=== PATIENT | male | born 1985 | race Caucasian/White ===

== ENCOUNTER 2017-08-25 09:21 | Inpatient (IN) | payer MEDICAID ==
[~2017-08-25] VITALS: Ht 188 cm; Wt 122.5 kg
[~2017-08-25 09:21] MED LIST: CYCL10TA13 PO; LORA-476 PO; SERT50TA PO
[2017-08-25 09:42] VITALS: BP 153/107
[2017-08-25] MEDS ORDERED: DICYCLOMINE HCL LIQUID 10 MG/5 ML UDC PO ONE (09:55)
[2017-08-25] MEDS ORDERED: ALUMINUM HYD/MAG/SIMETHICONE 30 ML UDC PO ONE (09:55)
[2017-08-25] MEDS ORDERED: ONDANSETRON 4 MG/2 ML VIAL IVP ONE (10:00)
[2017-08-25] MEDS ORDERED: NACL 0.9% 1,000 ML IV ONE (10:00)
[2017-08-25] MEDS ORDERED: MORPHINE SULFATE 4 MG/ML SYR IVP ONE (10:30)
[2017-08-25 10:31] LABS: WHITE BLOOD COUNT (AUTO) 18.6 K/uL (4.8-10.8)
[2017-08-25 10:35] LABS: HEMOGLOBIN 14.8 g/dL (12.0-18.0); MEAN CORPUSCULAR HEMOGLOBIN 28 pg (27-31); MEAN CORPUSCULAR HGB CONC 33 g/dL (33-37); MEAN CORPUSCULAR VOLUME 84 fL (80-94); PLATELET COUNT (AUTO) 379 K/uL (140-450); RED BLOOD CELL COUNT(AUTO) 5.39 MIL/uL (4.20-6.10); RED CELL DISTRIBUTION WIDTH 19.2 % (11.6-13.7)
[2017-08-25] MEDS: KETOROLAC 30 MG/ML VIAL IVP ONE ×2 (10:41→10:47)
[2017-08-25 10:42] LABS: ALBUMIN 4.4 g/dL (3.4-5.0); ANION GAP 19.6 (8-16); CARBON DIOXIDE 22.5 mmol/L (21-32); CREATININE 0.9 mg/dL (0.7-1.3); POTASSIUM 3.1 mmol/L (3.5-5.1); TOTAL BILIRUBIN 0.8 mg/dL (0.0-1.0)
[2017-08-25 10:48] LABS: PROTHROMBIN TIME 11.3 secs (10.8-13.4)
[2017-08-25 10:55] LABS: LYMPHOCYTES % (MANUAL) 5 % (20-46); MONOCYTES % (MANUAL) 1 % (5-12)
[2017-08-25 11:10] LABS: APPEARANCE,URINE CLEAR (CLEAR); BILIRUBIN,URINE NEGATIVE (NEGATIVE); BLOOD, URINE NEGATIVE (NEGATIVE); COLOR,URINE YELLOW (YELLOW); LEUKOCYTE ESTERASE ,URINE NEGATIVE (NEGATIVE); NITRITE, URINE NEGATIVE (NEGATIVE); UGLUCOSE NEGATIVE (NEGATIVE)
[2017-08-25 11:16] LABS: RBC,URINE 0-5 (RARE) /HPF (0-5); WBC,URINE 0-5 (RARE) /HPF (0-5)
[2017-08-25] MEDS: NACL 0.9% 1,000 ML IV SCH ×3 (11:40→21:00)
[2017-08-25] MEDS ORDERED: ONDANSETRON 4 MG/2 ML VIAL IVP PRN (11:40)
[2017-08-25] MEDS ORDERED: HYDROcodone/APAP 7.5/325 MG 1 TAB PO PRN (11:40)
[2017-08-25] MEDS ORDERED: hydrALAZINE 20 MG/ML VIAL ONE (11:53)
[2017-08-25] MEDS ORDERED: hydrALAZINE 20 MG/ML VIAL IVP ONE (11:55)
[2017-08-25] MEDS ORDERED: oxyCODONE/APAP 5/325 MG 1 TAB TAB PO PRN (12:10)
[2017-08-25 12:15] LABS: MAGNESIUM 1.7 mg/dL (1.8-2.4)
[2017-08-25 12:15] LABS: BARBITURATE, URINE NEG. ng/ml (NEG <=200); BENZODIAZEPINE, URINE NEG. ng/mL (NEG <=200); CANNABINOID, URINE POS. ng/mL (NEG <=50); COCAINE, URINE NEG. ng/mL (NEG <=300); OPIATE, URINE NEG. ng/mL (NEG <=2000); PHENCYCLIDINE SCREEN,URINE NEG. ng/mL (NEG <=25)
[2017-08-25] MEDS ORDERED: HYDROmorphone 1 MG/ML AMP ONE (12:24)
[2017-08-25 12:25] LABS: CHOL/HDL RATIO 5.6 (1-4.5); FREE T4 (FREE THYROXINE) 0.77 ng/dL (0.76-1.46); PHOSPHORUS 3.5 mg/dL (2.5-4.9); THYROID STIMULATING HORMONE 2.83 uIU/mL (0.34-3.74)
[2017-08-25] MEDS: HYDROmorphone PFS 2 MG/ML SYR IVP PRN ×3 (12:27→21:04)
[2017-08-25 13:00] VITALS: BP 160/97
[2017-08-25] MEDS ORDERED: POTASSIUM CHLORIDE 10 MEQ TABER PO SCH (13:00)
[2017-08-25] MEDS ORDERED: SCOPOLAMINE 1.5 MG/72 HR PATCH TD SCH (14:00)
[2017-08-25] MEDS: chlordiazePOXIDE 25 MG CAP PO SCH ×2 (14:21→17:06)
[2017-08-25 16:00] VITALS: BP 166/109
[2017-08-25 20:00] VITALS: BP 158/119
[2017-08-25] MEDS: DOCUSATE SODIUM 100 MG GELCAP PO SCH (21:03)
[2017-08-25] MEDS: LORazepam 2 MG/ML VIAL IVP PRN (23:49)
[2017-08-26] VITALS: BP 164/112
[2017-08-26] MEDS: NACL 0.9% 1,000 ML IV SCH ×5 (01:00→21:00)
[2017-08-26] MEDS: HYDROmorphone PFS 2 MG/ML SYR IVP PRN ×6 (01:21→21:46)
[2017-08-26 04:00] VITALS: BP 153/112
[2017-08-26 06:03] LABS: HEMATOCRIT 45.3 % (36-52); HEMOGLOBIN 14.5 g/dL (12.0-18.0); MEAN CORPUSCULAR HEMOGLOBIN 27 pg (27-31); MEAN CORPUSCULAR HGB CONC 32 g/dL (33-37); MEAN CORPUSCULAR VOLUME 85 fL (80-94); PLATELET COUNT (AUTO) 276 K/uL (140-450); RED BLOOD CELL COUNT(AUTO) 5.31 MIL/uL (4.20-6.10); RED CELL DISTRIBUTION WIDTH 20.1 % (11.6-13.7)
[2017-08-26 06:22] LABS: ANION GAP 17.2 (8-16); CARBON DIOXIDE 24.2 mmol/L (21-32); CREATININE 0.8 mg/dL (0.7-1.3); POTASSIUM 4.4 mmol/L (3.5-5.1)
[2017-08-26 06:24] LABS: MAGNESIUM 1.3 mg/dL (1.8-2.4); PHOSPHORUS 2.8 mg/dL (2.5-4.9)
[2017-08-26 07:05] LABS: LYMPHOCYTES % (MANUAL) 3 % (20-46); MONOCYTES % (MANUAL) 3 % (5-12)
[2017-08-26 08:00] VITALS: BP 161/110
[2017-08-26] MEDS: FOLIC ACID 1 MG TAB PO SCH (09:13)
[2017-08-26] MEDS: MULTIVITAMIN 1 TAB PO SCH (09:13)
[2017-08-26] MEDS: THIAMINE 100 MG TAB PO SCH (09:13)
[2017-08-26] MEDS: DOCUSATE SODIUM 100 MG GELCAP PO SCH ×2 (09:14→21:45)
[2017-08-26] MEDS: MAGNESIUM OXIDE 400 MG TAB PO SCH (09:14)
[2017-08-26] MEDS: chlordiazePOXIDE 25 MG CAP PO SCH ×3 (09:14→17:28)
[2017-08-26] MEDS: LORazepam 2 MG/ML VIAL IVP PRN (10:39)
[2017-08-26] MEDS ORDERED: METOPROLOL SUCCINATE 50 MG TABER PO SCH (11:35)
[2017-08-26] MEDS: ACETAMINOPHEN 325 MG TAB PO PRN (11:46)
[2017-08-26 12:00] VITALS: BP_SYST 137; BP_SYST 162; BP_DIAS 105; BP_DIAS 98
[2017-08-26 16:00] VITALS: BP 162/105
[2017-08-26 20:00] VITALS: BP 146/80
[2017-08-27] VITALS: BP 135/88
[2017-08-27] MEDS: HYDROmorphone PFS 2 MG/ML SYR IVP PRN (01:46)
[2017-08-27] MEDS: NACL 0.9% 1,000 ML IV SCH ×4 (03:40→23:40)
[2017-08-27 04:00] VITALS: BP 145/92
[2017-08-27] MEDS ORDERED: METOPROLOL SUCCINATE 50 MG TABER PO SCH ×2 (05:00→09:00)
[2017-08-27] MEDS: ACETAMINOPHEN 325 MG TAB PO PRN (05:15)
[2017-08-27 05:55] LABS: HEMATOCRIT 35.4 % (36-52); HEMOGLOBIN 11.8 g/dL (12.0-18.0); MEAN CORPUSCULAR HEMOGLOBIN 28 pg (27-31); MEAN CORPUSCULAR HGB CONC 33 g/dL (33-37); MEAN CORPUSCULAR VOLUME 85 fL (80-94); PLATELET COUNT (AUTO) 192 K/uL (140-450); RED BLOOD CELL COUNT(AUTO) 4.17 MIL/uL (4.20-6.10); RED CELL DISTRIBUTION WIDTH 19.7 % (11.6-13.7); WHITE BLOOD COUNT (AUTO) 17.8 K/uL (4.8-10.8)
[2017-08-27 06:16] LABS: ANION GAP 13.4 (8-16); CREATININE 0.7 mg/dL (0.7-1.3); POTASSIUM 3.4 mmol/L (3.5-5.1)
[2017-08-27 06:21] LABS: MAGNESIUM 1.4 mg/dL (1.8-2.4); PHOSPHORUS 1.6 mg/dL (2.5-4.9)
[2017-08-27 07:04] LABS: LYMPHOCYTES % (MANUAL) 7 % (20-46); MONOCYTES % (MANUAL) 5 % (5-12)
[2017-08-27 08:00] VITALS: BP 142/95
[2017-08-27] MEDS ORDERED: METHOCARBAMOL 500 MG TAB PO PRN (08:05)
[2017-08-27] MEDS: THIAMINE 100 MG TAB PO SCH (08:37)
[2017-08-27] MEDS: MAGNESIUM OXIDE 400 MG TAB PO SCH (08:37)
[2017-08-27] MEDS: DOCUSATE SODIUM 100 MG GELCAP PO SCH ×2 (08:37→21:44)
[2017-08-27] MEDS: HYDROcodone/APAP 7.5/325 MG 1 TAB PO PRN ×4 (08:38→21:44)
[2017-08-27] MEDS: FOLIC ACID 1 MG TAB PO SCH (08:38)
[2017-08-27] MEDS: chlordiazePOXIDE 25 MG CAP PO SCH ×3 (08:38→16:41)
[2017-08-27] MEDS: MULTIVITAMIN 1 TAB PO SCH (08:39)
[2017-08-27] MEDS ORDERED: ALUMINUM HYD/MAG/SIMETHICONE 30 ML UDC PO PRN (08:50)
[2017-08-27] MEDS ORDERED: MAG SULF 2000 MG/WATER PREMIX 50 ML IV SCH (09:00)
[2017-08-27] MEDS ORDERED: POTASSIUM CHLORIDE 10 MEQ TABER PO SCH (09:00)
[2017-08-27 12:00] VITALS: BP 128/88
[2017-08-27 16:00] VITALS: BP 139/97
[2017-08-27] MEDS ORDERED: LORazepam 2 MG/ML VIAL IVP SCH (17:30)
[2017-08-27] MEDS: LORazepam 2 MG/ML VIAL IVP PRN (18:09)
[2017-08-27 20:00] VITALS: BP 131/90
[2017-08-27] MEDS ORDERED: SODIUM PHOS / POTASSIUM PHOS 1 PKT PDR PO SCH (21:00)
[2017-08-28] VITALS: BP 136/90
[2017-08-28 04:00] VITALS: BP 135/82
== END 2017-08-28 05:30 | disposition left against medical advice (07) | DRG 282 ==
LOC: MED 09:21 → MTU 11:40
PROVIDERS: ADMIT Family Medicine Sports Medicine; ATTEND Family Medicine Sports Medicine
DX: K85.20 Alcohol induced acute pancreatitis without necrosis or infection (principal); R65.10 Systemic inflammatory response syndrome (SIRS) of non-infectious origin without acute organ dysfunction; K76.0 Fatty (change of) liver, not elsewhere classified; E87.6 Hypokalemia; E83.42 Hypomagnesemia; F10.10 Alcohol abuse, uncomplicated; E66.9 Obesity, unspecified; E78.1 Pure hyperglyceridemia; I10 Essential (primary) hypertension; F17.210 Nicotine dependence, cigarettes, uncomplicated; Z53.21 Procedure and treatment not carried out due to patient leaving prior to being seen by health care provider; E11.9 Type 2 diabetes mellitus without complications; Z68.34 Body mass index [BMI] 34.0-34.9, adult; Z88.8 Allergy status to other drugs, medicaments and biological substances; Z87.442 Personal history of urinary calculi; Z98.84 Bariatric surgery status
CPT/HCPCS: 36415; 71045; 80048; 80053; 80305; 81001; 82140; 82150; 83036; 83615; 83690; 83735; 83880; 84100; 84439; 84443; 84484; 85025; 85610; 85730; 87081; 96361; 96374; 96375; 99285; G0482; J0360; J1170; J1885; J2060; J2270; J2405; J3475; J7030; Q0092

== ENCOUNTER 2017-08-29 22:11 | Inpatient (IN) | payer MEDICAID ==
[~2017-08-29] VITALS: Ht 188 cm; Wt 119.0 kg
[~2017-08-29 22:11] MED LIST changes: -SERT50TA PO
[2017-08-29 22:44] VITALS: BP 128/82
[2017-08-29 23:41] LABS: HEMATOCRIT 34.6 % (36-52); HEMOGLOBIN 11.4 g/dL (12.0-18.0); MEAN CORPUSCULAR HEMOGLOBIN 28 pg (27-31); MEAN CORPUSCULAR HGB CONC 33 g/dL (33-37); MEAN CORPUSCULAR VOLUME 86 fL (80-94); PLATELET COUNT (AUTO) 223 K/uL (140-450); RED BLOOD CELL COUNT(AUTO) 4.03 MIL/uL (4.20-6.10); RED CELL DISTRIBUTION WIDTH 19.6 % (11.6-13.7); WHITE BLOOD COUNT (AUTO) 23.7 K/uL (4.8-10.8)
[2017-08-29 23:51] LABS: ANION GAP 15.7 (8-16); CARBON DIOXIDE 23.3 mmol/L (21-32); CREATININE 0.6 mg/dL (0.7-1.3)
[2017-08-29 23:57] LABS: ALBUMIN 2.7 g/dL (3.4-5.0); TOTAL BILIRUBIN 0.5 mg/dL (0.0-1.0)
[2017-08-30 00:02] LABS: EOSINOPHILS % (MANUAL) 1 % (0-4); LYMPHOCYTES % (MANUAL) 13 % (20-46); MONOCYTES % (MANUAL) 10 % (5-12)
--- NOTE | 2017-08-30 02:00 | NUR ---
PT. AMBULATED TO ER [facility]
[2017-08-30] MEDS ORDERED: ONDANSETRON 4 MG/2 ML VIAL IVP ONE (02:25)
[2017-08-30] MEDS ORDERED: MORPHINE SULFATE 4 MG/ML SYR IVP ONE ×2 (02:25→04:35)
[2017-08-30] MEDS ORDERED: NACL 0.9% 1,000 ML IV ONE ×2 (02:25→04:35)
--- NOTE | 2017-08-30 02:48 | NUR ---
PT MOVED TO BED 3
--- NOTE | 2017-08-30 03:01 | NUR ---
RECEIVED PT FROM DAY NURSE ANGEL RN, PT IN STABLE CONDITION. NO S/S OF DISTRESS NOTED. PT IS AAOX4. PT IS ON RA. SKIN INTACT, WARM AND DRY TO TOUCH, TATTOOS IN MULTIPLE AREAS OF THE BODY. IV TO L AC 20G PATENT AND INTACT. INITIAL ASSESSMENT COMPLETED. PLAN OF CARE DISCUSSED WITH PT, VERBALIZED UNDERSTANDING. ALL SAFETY PRECAUTIONS MET, CALL LIGHT WITHIN REACH, BOARD UPDATED WILL CONTINUE TO MONITOR, Addendum: 08/31/17 at 0305 by Rima Pisano RN INCORRECT TIME, 08/30/171920
[2017-08-30] MEDS ORDERED: ONDANSETRON 4 MG/2 ML VIAL IVP PRN (05:05)
[2017-08-30] MEDS ORDERED: MECL-322 PO (05:55)
--- NOTE | 2017-08-30 05:58 | NUR ---
Pt escorted to floor via [place] by Glenn AWAD and Desean GONZALEZ with VSS
--- NOTE | 2017-08-30 06:07 | NUR ---
Report given and care transfered to Sydney RN
--- NOTE | 2017-08-30 06:09 | NUR ---
RECEIVED PT. FROM ER PER CJ AWAKE AND ALERT. SKIN INTACT. TATTOES IN MULTIPLE PARTS OF BODY. ABLE TO VERBALIZE NEEDS WELL IN URDU. NO SOB. DENIES PAIN AT THIS TIME. PT. DX. PANCREATITIS. ROM X 4. CARE PLANS FOR THE DAY EXPLAINED TO PT. CALL LIGHT USE AND RAPID RESPONSE. AFEBRILE.
[2017-08-30 06:23] VITALS: BP 120/74
[2017-08-30] MEDS ORDERED: MECLIZINE HCL 25 MG PO SCH (07:15)
--- NOTE | 2017-08-30 07:28 | NUR ---
ENDORSED TO THE AM RN FOR CONTINUITY OF CARE. NO RESTLESSNESS. SLEEPING. TELEMETRY MONITORING. NSR.
--- NOTE | 2017-08-30 07:30 | NUR ---
REPORT RECEIVED FROM STRIP FEEDER, PT SLEEPING QUIETLY IN NAD, RESP EVEN UNLABORED ON RA, SKIN WARM DRY COLOR WNL, PT AROUSES EASILY, NO C/O PAIN OR DISCOMFORT AT THIS TIME, PLAN OF CARE REVIEWED, ALL SAFETY MEASURES IN PLACE, WILL CONTINUE TO MONITOR.
[2017-08-30 07:34] LABS: PROTHROMBIN TIME 11.5 secs (10.8-13.4)
[2017-08-30 07:39] LABS: ANION GAP 14.6 (8-16); CARBON DIOXIDE 25.4 mmol/L (21-32); CREATININE 0.6 mg/dL (0.7-1.3)
[2017-08-30 07:43] LABS: CHOL/HDL RATIO 6.7 (1-4.5); FREE T4 (FREE THYROXINE) 1.04 ng/dL (0.76-1.46); PHOSPHORUS 3.1 mg/dL (2.5-4.9); THYROID STIMULATING HORMONE 3.02 uIU/mL (0.34-3.74)
[2017-08-30] MEDS ORDERED: MECLIZINE 25 MG TAB PO PRN (07:45)
[2017-08-30 08:00] VITALS: BP 121/80
[2017-08-30] MEDS: DOCUSATE SODIUM 100 MG GELCAP PO SCH ×2 (08:20→21:01)
[2017-08-30] MEDS: CYCLOBENZAPRINE 10 MG TAB PO SCH ×3 (08:20→16:35)
[2017-08-30] MEDS: LORazepam 1 MG TAB PO SCH ×3 (08:20→16:35)
[2017-08-30] MEDS: NACL 0.9% 1,000 ML IV SCH ×3 (08:21→21:37)
--- NOTE | 2017-08-30 08:30 | NUR ---
DUE MEDS GIVEN, DIMITRY WELL, NS IVF STARTED PER ORDER, OK TO START CLEAR LIQ PER DR ANDREWS, APPLE JUICE GIVEN AT THIS TIME. WILL CONTINUE TO MONITOR.
--- NOTE | 2017-08-30 10:04 | NUR ---
PATIENT HAS BEEN SCREENED AND CATEGORIZED MODERATE NUTRITION RISK. PATIENT WILL BE SEEN WITHIN 3-5 DAYS OF ADMISSION. 09/01/17-09/03/[address]
[2017-08-30] MEDS: LEVOFLOXACIN 750 MG/D5W PREMIX 150 ML IV SCH (11:44)
[2017-08-30] MEDS: HYDROcodone/APAP 7.5/325 MG 1 TAB PO PRN ×2 (11:53→18:06)
[2017-08-30 12:00] VITALS: BP 138/87
[2017-08-30] MEDS ORDERED: POTASSIUM CHLORIDE 40 MEQ, LIDOCAINE 1% 25 MG in NACL 0.9% 250 ML IV SCH (12:30)
--- NOTE | 2017-08-30 14:00 | NUR ---
YOHAN CASANOVA AT BEDSIDE.
[2017-08-30] MEDS: SCOPOLAMINE 1.5 MG/72 HR PATCH TD SCH (14:06)
[2017-08-30 14:58] LABS: APPEARANCE,URINE CLEAR (CLEAR); BILIRUBIN,URINE 1+ (NEGATIVE); BLOOD, URINE NEGATIVE (NEGATIVE); COLOR,URINE YELLOW (YELLOW); LEUKOCYTE ESTERASE ,URINE NEGATIVE (NEGATIVE); NITRITE, URINE NEGATIVE (NEGATIVE); PH,URINE 6.5 (5.0-9.0); UGLUCOSE NEGATIVE (NEGATIVE)
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
[2017-08-30] MEDS: CLINDAMYCIN 600 MG in DEXTROSE 5% 50 ML IV SCH ×2 (15:46→21:17)
[2017-08-30 16:00] VITALS: BP 133/82
[2017-08-30 16:06] LABS: BARBITURATE, URINE NEG. ng/ml (NEG <=200); BENZODIAZEPINE, URINE POS. ng/mL (NEG <=200); CANNABINOID, URINE POS. ng/mL (NEG <=50); COCAINE, URINE NEG. ng/mL (NEG <=300); OPIATE, URINE POS. ng/mL (NEG <=2000); PHENCYCLIDINE SCREEN,URINE NEG. ng/mL (NEG <=25)
--- NOTE | 2017-08-30 18:11 | NUR ---
PT HAS BEEN SLEEPING MOST OF THE DAY, NOW AWAKE ALERT, C/O MID ABD APIN STATES 4-11/11, NORCO GIVEN, PT DIMITRY CLEAR LIQ WELL, WITHOUT VOMITING, IVF CONTINUES, SITE CLEAR, SAFETY MEASURES REMAINS, WILL CONTINUE TO MONITOR
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
--- NOTE | 2017-08-30 19:21 | NUR ---
RECEIVED PT FROM DAY NURSE ANGEL RN, PT IN STABLE CONDITION. NO S/S OF DISTRESS NOTED. PT IS AAOX4. PT IS ON RA. SKIN INTACT, WARM AND DRY TO TOUCH, TATTOOS IN MULTIPLE AREAS OF THE BODY. IV TO L AC 20G PATENT AND INTACT. INITIAL ASSESSMENT COMPLETED. PLAN OF CARE DISCUSSED WITH PT, VERBALIZED UNDERSTANDING. ALL SAFETY PRECAUTIONS MET, CALL LIGHT WITHIN REACH, BOARD UPDATED WILL CONTINUE TO MONITOR
[2017-08-30 20:00] VITALS: BP 114/76
--- NOTE | 2017-08-30 21:01 | NUR ---
DUE MEDICATIONS GIVEN, PT TOLERATED WELL
[2017-08-31] VITALS: BP 126/74
--- NOTE | 2017-08-31 | NUR ---
PT RESTING COMFORTABLY IN BED, NO S/S OF DISTRESS NOTED. RR EVEN/UNLABORED
--- NOTE | 2017-08-31 02:00 | NUR ---
PT RESTING COMFORTABLY, NO ACUTE S/S OF DISTRESS
[2017-08-31] MEDS: HYDROcodone/APAP 7.5/325 MG 1 TAB PO PRN ×4 (02:22→20:22)
[2017-08-31 04:00] VITALS: BP 130/77
[2017-08-31] MEDS: ACETAMINOPHEN 325 MG TAB PO PRN ×2 (04:41→22:09)
--- NOTE | 2017-08-31 04:44 | NUR ---
IV NO LONGER PATENT OR FLUSHING. NEW IV STARTED IN THE R WRIST/LOWER FOREARM AREA 24 G BY DILMA BONILLA RN. 2 ATTEMPTS MADE PT TOLERATED WELL
[2017-08-31] MEDS: NACL 0.9% 1,000 ML IV SCH ×3 (04:46→21:14)
[2017-08-31] MEDS: CLINDAMYCIN 600 MG in DEXTROSE 5% 50 ML IV SCH ×3 (05:18→20:23)
--- NOTE | 2017-08-31 05:18 | NUR ---
CLEOCIN HUNG AND INFUSING AT THIS TIME
--- NOTE | 2017-08-31 06:30 | NUR ---
CLEOCIN FINISHED AT THIS TIME
[2017-08-31 07:18] LABS: BASOPHILS % (AUTO) 0.4 % (0.0-2.0); EOSINOPHILS # (AUTO) 0.1 K/uL (0-0.4); EOSINOPHILS % (AUTO) 1.4 % (0.0-4.0); HEMATOCRIT 28.1 % (36-52); HEMOGLOBIN 9.4 g/dL (12.0-18.0); LYMPHOCYTES # (AUTO) 0.9 K/uL (2.0-11.5); LYMPHOCYTES % (AUTO) 9.4 % (20.5-51.1); MEAN CORPUSCULAR HEMOGLOBIN 29 pg (27-31); MEAN CORPUSCULAR HGB CONC 34 g/dL (33-37); MEAN CORPUSCULAR VOLUME 85 fL (80-94); MONOCYTES # (AUTO) 1.1 K/uL (0.8-1.0); MONOCYTES % (AUTO) 11.1 % (1.7-9.3); NEUTROPHILS # (AUTO) 7.8 K/uL (1.8-7.7); NEUTROPHILS % (AUTO) 77.7 % (42.2-75.2); PLATELET COUNT (AUTO) 260 K/uL (140-450); RED CELL DISTRIBUTION WIDTH 19.4 % (11.6-13.7); WHITE BLOOD COUNT (AUTO) 9.9 K/uL (4.8-10.8)
--- NOTE | 2017-08-31 07:28 | NUR ---
REPORT GIVEN TO ANGEL RN FOR CONTINUITY OF CARE, PT IN STABLE CONDITION
--- NOTE | 2017-08-31 07:29 | NUR ---
REPORT RECEIVED FROM DROP WIRE ALIGNER CORNELIO PT AWAKE ALERT, RESP EVEN UNLABORED, SKIN WARM DRY COLOR WNL, PT DENIES PAIN OR DISCOMFORT, VOICES NO IMMEDIATE NEEDS, PLAN OF CARE REVIEWED, ALL SAFETY MEASURES REMAINS, WILL CONTINUE TO MONITOR
[2017-08-31 07:57] LABS: PHOSPHORUS 3.7 mg/dL (2.5-4.9)
[2017-08-31 08:00] VITALS: BP 125/78
[2017-08-31] MEDS: NICOTINE TRANSD SYS 14 MG/24 HR PATCH TD SCH (08:34)
[2017-08-31] MEDS: CYCLOBENZAPRINE 10 MG TAB PO SCH ×3 (08:34→17:44)
[2017-08-31] MEDS: LORazepam 1 MG TAB PO SCH ×3 (08:35→17:43)
[2017-08-31] MEDS: LACTOBACILLUS RHAMNOSUS GG 1 EACH CAP PO SCH (08:35)
[2017-08-31] MEDS: DOCUSATE SODIUM 100 MG GELCAP PO SCH ×2 (08:35→20:22)
--- NOTE | 2017-08-31 08:40 | NUR ---
AM MEDS GIVEN DIMITRY WELL, DENIES NAUSEA DENIES PAIN, IV FLUSHES WELL, SITE CLEAR, WILL CONTINUE TO MONITOR.
[2017-08-31 09:10] LABS: CARBON DIOXIDE 26.5 mmol/L (21-32); POTASSIUM 3.5 mmol/L (3.5-5.1)
[2017-08-31 09:11] LABS: CREATININE 0.6 mg/dL (0.7-1.3)
[2017-08-31] MEDS: LEVOFLOXACIN 750 MG/D5W PREMIX 150 ML IV SCH (11:30)
--- NOTE | 2017-08-31 11:30 | NUR ---
MEDICATED WITH NORCO FOR ABD PAIN, PT DENIES NAUSEA, DIMITRY CLEAR LIQ AND CRACKERS WELL, PT TO HAVE REGULAR LUNCH, WILL CONTINUE TO MONITOR.
[2017-08-31 12:00] VITALS: BP 128/77
--- NOTE | 2017-08-31 14:36 | NUR ---
PT SITTING UP WATCHING TV, RESP EVEN UNLABORED ON RA, SKIN WARM DRY COLOR WNL, DENIES N/V DENIES PAIN, IVF INFUSING WELL, SITE CLEAR, WILL CONTINUE TO MONITOR.
[2017-08-31 16:00] VITALS: BP 144/90
--- NOTE | 2017-08-31 16:22 | NUR ---
PT C/O MILD ABD PAIN, 5/10, NORCO GIVEN PER PT REQUEST, PT DIMITRY REGULAR DIET WITHOUT N/V, PT RESTING QUIETLY IN NAD, IVF CONTINUES, SITE WNL, WILL CONTINUE TO MONITOR.
--- NOTE | 2017-08-31 19:15 | NUR ---
REPORT GIVEN TO LIVESTOCK NUTRITIONIST NURSE EDSON WELLINGTON IN STABLE CONDITION.
--- NOTE | 2017-08-31 19:17 | NUR ---
RECEIVED HANDOFF REPORT FROM AM RN. PATIENT A&OX4. PATIENT DENIES PAIN. IV SITE PATENT AND INTACT. NO SIGNS OR SYMPTOMS OF ACUTE DISTRESS NOTED. CALL LIGHT WITHIN REACH. WILL CONTINUE TO MONITOR.
[2017-08-31] MEDS: PANTOPRAZOLE 40 MG TABEC PO SCH (21:12)
--- NOTE | 2017-08-31 22:01 | NUR ---
PATIENT HAS 101.1 TEMP. WILL MEDICATE ORDERED. COOLING MEASURES IN PLACE. WILL REASSESS.
--- NOTE | 2017-08-31 23:15 | NUR ---
PATIENTS TEMP IS 98.3. NO SIGNS OR SYMPTOMS OF ACUTE DISTRESS NOTED. WILL CONTINUE TO MONITOR.
[2017-09-01] VITALS: BP 127/81
[2017-09-01] MEDS: NACL 0.9% 1,000 ML IV SCH ×2 (02:13→04:17)
[2017-09-01] MEDS: HYDROcodone/APAP 7.5/325 MG 1 TAB PO PRN ×4 (02:23→21:39)
[2017-09-01] MEDS: CLINDAMYCIN 600 MG in DEXTROSE 5% 50 ML IV SCH ×3 (04:14→21:38)
--- NOTE | 2017-09-01 07:10 | NUR ---
RECEIVED PATIENT REPORT AT BEDSIDE. PATIENT A&OX4. PATIENT DENIES PAIN. IV SITE PATENT AND INTACT. NO SIGNS OR SYMPTOMS OF ACUTE DISTRESS NOTED. CALL LIGHT WITHIN REACH. WILL CONTINUE TO MONITOR.
[2017-09-01 07:16] LABS: HEMATOCRIT 28.2 % (36-52); HEMOGLOBIN 9.3 g/dL (12.0-18.0); MEAN CORPUSCULAR HEMOGLOBIN 28 pg (27-31); MEAN CORPUSCULAR HGB CONC 33 g/dL (33-37); MEAN CORPUSCULAR VOLUME 85 fL (80-94); PLATELET COUNT (AUTO) 298 K/uL (140-450); RED BLOOD CELL COUNT(AUTO) 3.31 MIL/uL (4.20-6.10); RED CELL DISTRIBUTION WIDTH 19.4 % (11.6-13.7); WHITE BLOOD COUNT (AUTO) 10.7 K/uL (4.8-10.8)
--- NOTE | 2017-09-01 07:17 | NUR ---
ENDORSED PLAN OF CARE TO AM RN. PATIENT IN STABLE CONDITION.
[2017-09-01 07:31] LABS: ANION GAP 13.8 (8-16); CARBON DIOXIDE 26.7 mmol/L (21-32); CREATININE 0.6 mg/dL (0.7-1.3); POTASSIUM 3.5 mmol/L (3.5-5.1)
[2017-09-01 07:37] LABS: MAGNESIUM 1.8 mg/dL (1.8-2.4); PHOSPHORUS 3.8 mg/dL (2.5-4.9)
[2017-09-01 07:39] LABS: EOSINOPHILS % (MANUAL) 1 % (0-4); LYMPHOCYTES % (MANUAL) 11 % (20-46); MONOCYTES % (MANUAL) 8 % (5-12)
[2017-09-01 08:00] VITALS: BP 139/82
[2017-09-01] MEDS: LORazepam 1 MG TAB PO SCH ×3 (08:34→16:30)
[2017-09-01] MEDS: DOCUSATE SODIUM 100 MG GELCAP PO SCH ×2 (08:34→21:40)
[2017-09-01] MEDS: LACTOBACILLUS RHAMNOSUS GG 1 EACH CAP PO SCH (08:34)
[2017-09-01] MEDS: PANTOPRAZOLE 40 MG TABEC PO SCH (08:35)
[2017-09-01] MEDS: CYCLOBENZAPRINE 10 MG TAB PO SCH ×3 (08:35→16:31)
[2017-09-01] MEDS: NICOTINE TRANSD SYS 14 MG/24 HR PATCH TD SCH (08:35)
--- NOTE | 2017-09-01 11:20 | NUR ---
PATIENT AMBULATING AROUND THE UNIT. NO S/S OF DISTRESS NOTED
[2017-09-01] MEDS: LEVOFLOXACIN 750 MG/D5W PREMIX 150 ML IV SCH (11:22)
--- NOTE | 2017-09-01 14:25 | NUR ---
PATIENT IN BED, WATCHING TELEVISION. NO S/S OF DISTRESS NOTED
[2017-09-01 16:00] VITALS: BP 135/83
--- NOTE | 2017-09-01 19:23 | NUR ---
IS FOLLOW UP NOT DONE PT IS ASLEEP
--- NOTE | 2017-09-01 19:32 | NUR ---
PATIENT REPORT GIVEN AT BEDSIDE. PATIENT ENDORSED IN STABLE CONDITION
--- NOTE | 2017-09-01 19:33 | NUR ---
RECEIVED PT FROM DOMINGO AWAD PT IS AAOX4 AMBULATORY ON RT WRIST IV IS INFILTRATED I WILL START A NEW IV LINE INITIAL ASSESSMENT DONE
[2017-09-01 20:00] VITALS: BP 133/87
--- NOTE | 2017-09-01 22:45 | NUR ---
PT REMAIN STABLE DENIES ANY PAIN AMBULATORY IV ON LEFT WRIST INFUSING WELL
[2017-09-02] VITALS: BP 97/52
[2017-09-02] MEDS: NACL 0.9% 1,000 ML IV SCH ×3 (01:20→17:00)
--- NOTE | 2017-09-02 01:23 | NUR ---
PT SLEEPING WELL NOT DISTRESS NOTED AT THIS K[place];E NOT FEVER, NOT PAIN
[2017-09-02 04:00] VITALS: BP 125/80
--- NOTE | 2017-09-02 04:00 | NUR ---
SPONGE BATH GIVEN LINEN CHANGED NOT DISTRESS NOTED. PT VOIDING WELL
[2017-09-02] MEDS: HYDROcodone/APAP 7.5/325 MG 1 TAB PO PRN ×3 (04:52→16:59)
[2017-09-02] MEDS: CLINDAMYCIN 600 MG in DEXTROSE 5% 50 ML IV SCH ×3 (04:53→20:31)
[2017-09-02 05:58] LABS: BASOPHILS # (AUTO) 0.1 K/uL (0.00-0.22); BASOPHILS % (AUTO) 0.4 % (0.0-2.0); EOSINOPHILS # (AUTO) 0.2 K/uL (0-0.4); EOSINOPHILS % (AUTO) 1.4 % (0.0-4.0); HEMATOCRIT 29.3 % (36-52); HEMOGLOBIN 9.6 g/dL (12.0-18.0); LYMPHOCYTES % (AUTO) 6.9 % (20.5-51.1); MEAN CORPUSCULAR HEMOGLOBIN 28 pg (27-31); MEAN CORPUSCULAR HGB CONC 33 g/dL (33-37); MEAN CORPUSCULAR VOLUME 85 fL (80-94); MONOCYTES # (AUTO) 0.7 K/uL (0.8-1.0); MONOCYTES % (AUTO) 5.1 % (1.7-9.3); NEUTROPHILS # (AUTO) 12.2 K/uL (1.8-7.7); NEUTROPHILS % (AUTO) 86.2 % (42.2-75.2); PLATELET COUNT (AUTO) 360 K/uL (140-450); RED BLOOD CELL COUNT(AUTO) 3.43 MIL/uL (4.20-6.10); RED CELL DISTRIBUTION WIDTH 19.6 % (11.6-13.7)
--- NOTE | 2017-09-02 06:24 | NUR ---
PT SLEEPING AFTER PAIN MEDIC GIVEN DENIES ANY DISTRESS AT THIS TIME IV ON LEFT WRIST INFUSING WELL
[2017-09-02 06:46] LABS: CARBON DIOXIDE 22.4 mmol/L (21-32); CREATININE 0.6 mg/dL (0.7-1.3); POTASSIUM 3.4 mmol/L (3.5-5.1)
--- NOTE | 2017-09-02 07:30 | NUR ---
RECEIVED REPORT FROM INVESTIGATOR CASH SHORTAGE NURSE. PATIENT IN STABLE CONDITION. NO DISTRESS NOTED. PATIENT LYING IN BED SLEEPING, AROUSABLE BY VOICE. RESPIRATIONS EVEN, UNLABORED, ON ROOM AIR. AAOX4, CALM, COOPERATIVE, SKIN COLOR APPROPRIATE TO ETHNICITY, WARM TO TOUCH. SKIN IS INTACT. LUNGS CTA ON ALL LOBES. ABDOMEN SOFT, NON-DISTENDED. IV SITE INTACT, PATIENT AND INFUSING PER MD ORDERS. REVIEWED PLAN OF CARE WITH PATIENT. PATIENT VERBALIZED UNDERSTANDING. SAFETY MEASURES IN PLACE, CALL LIGHT WITHIN REACH. WILL CONTINUE TO MONITOR.
[2017-09-02 08:00] VITALS: BP 109/65
[2017-09-02 08:04] LABS: WHITE BLOOD COUNT (AUTO) 14.2 K/uL (4.8-10.8)
--- NOTE | 2017-09-02 08:15 | NUR ---
PATIENT LYING DOWN IN BED WATCHING TV. NO DISTRESS NOTED. DENIES ANY PAIN. WILL CONTINUE TO MONITOR.
[2017-09-02] MEDS: LORazepam 1 MG TAB PO SCH ×3 (10:06→17:00)
[2017-09-02] MEDS: PANTOPRAZOLE 40 MG TABEC PO SCH (10:06)
[2017-09-02] MEDS: CYCLOBENZAPRINE 10 MG TAB PO SCH ×3 (10:07→16:59)
[2017-09-02] MEDS: LACTOBACILLUS RHAMNOSUS GG 1 EACH CAP PO SCH (10:07)
[2017-09-02] MEDS: DOCUSATE SODIUM 100 MG GELCAP PO SCH ×2 (10:07→20:32)
[2017-09-02] MEDS: NICOTINE TRANSD SYS 14 MG/24 HR PATCH TD SCH (10:08)
--- NOTE | 2017-09-02 10:10 | NUR ---
PATIENT SITTING IN BED WATCHING TV. NO DISTRESS NOTED. DENIES ANY PAIN. SCHEDULED MEDICATIONS DUE GIVEN. SAFETY MEASURES IN PLACE, CALL LIGHT WITHIN REACH. WILL CONTINUE TO MONITOR.
[2017-09-02] MEDS ORDERED: POTASSIUM CHLORIDE 10 MEQ TABER PO SCH (12:00)
[2017-09-02] MEDS: LEVOFLOXACIN 750 MG/D5W PREMIX 150 ML IV SCH (12:16)
--- NOTE | 2017-09-02 12:20 | NUR ---
PATIENT LYING IN BED WATCHING TV. NO DISTRESS NOTED. LUNCH TRAY IN FRONT. COMPLAINTS OF ABDOMINAL PAIN. WILL MEDICATE PER ORDERS. SCHEDULED MEDICATIONS DUE GIVEN. SAFETY MEASURES IN PLACE, CALL LIGHT WITHIN REACH. WILL CONTINUE TO MONITOR.
[2017-09-02] MEDS: SCOPOLAMINE 1.5 MG/72 HR PATCH TD SCH (12:51)
--- NOTE | 2017-09-02 12:51 | NUR ---
OLD SCOPOLAMINE PATCH ON RIGHT MASTOID PROCESS REMOVED AND APPLIED NEW PATCH ON LEFT MASTOID PROCESS PER ORDERS. WILL CONTINUE TO MONITOR.
--- NOTE | 2017-09-02 13:54 | NUR ---
PATIENT LYING IN BED WATCHING TV. NO DISTRESS NOTED. PAIN WITHIN TOLERABLE. SCHEDULED MEDICATIONS DUE GIVEN. SAFETY MEASURES IN PLACE, CALL LIGHT WITHIN REACH. WILL CONTINUE TO MONITOR.
[2017-09-02 16:00] VITALS: BP 132/94
--- NOTE | 2017-09-02 17:06 | NUR ---
PATIENT SITTING IN BED WATCHING TV. NO DISTRESS NOTED. COMPLAINTS OF 6/10 PAIN. MEDICATED WITH NORCO PER ORDERS. OTHER SCHEDULED MEDICATIONS DUE GIVEN. SAFETY MEASURES IN PLACE, CALL LIGHT WITHIN REACH. WILL CONTINUE TO MONITOR.
--- NOTE | 2017-09-02 19:20 | NUR ---
GAVE REPORT TO LINUX KERNEL ENGINEER NURSE FOR CONTINUITY OF CARE. PATIENT IN STABLE CONDITION.
--- NOTE | 2017-09-02 19:35 | NUR ---
RECEIVED REPORT FROM DAY SHIFT, PATIENT RESTING IN BED, NO S/S OF DISTRESS NOTED, RESPIRATION EVEN AND UNLABORED, IV PATENT AND INTACT, INFUSING NS AT 90ML/HR, CALL LIGHT WITHIN REACH, SAFETY MEASURE ENSURED, WILL CONTINUE TO MONITOR.
--- NOTE | 2017-09-02 20:35 | NUR ---
DUE MEDICATION GIVEN, PATIENT TOLERATED WELL. NO S/S OF DISTRESS NOTED, CALL LIGHT WITHIN REACH, SAFETY MEASURE ENSURED, WILL CONTINUE TO MONITOR.
--- NOTE | 2017-09-02 22:45 | NUR ---
NO CHANGE IN CONDITION, PATIENT IS SLEEPING, NO S/S OF DISTRESS NOTED, RESPIRATION EVEN AND UNLABORED, CALL LIGHT WITHIN REACH, SAFETY MEASURE ENSURED, WILL CONTINUE TO MONITOR.
[2017-09-03] VITALS: BP 132/90
[2017-09-03] MEDS: HYDROcodone/APAP 7.5/325 MG 1 TAB PO PRN ×2 (00:08→05:06)
--- NOTE | 2017-09-03 00:08 | NUR ---
ASKED FOR PAIN MEDICATION, PAIN 6/10, MEDICATION ADMINISTERED ORDERED, CALL LIGHT WITHIN REACH, SAFETY MEASURE ENSURED, WILL CONTINUE TO MONITOR.
--- NOTE | 2017-09-03 03:35 | NUR ---
PATIENT IS SLEEPING, NO S/S OF DISTRESS NOTED, RESPIRATION EVEN AND UNLABORED, CALL LIGHT WITHIN REACH, SAFETY MEASURE ENSURED, WILL CONTINUE TO MONITOR.
[2017-09-03] MEDS: NACL 0.9% 1,000 ML IV SCH ×2 (04:50→16:56)
[2017-09-03] MEDS: CLINDAMYCIN 600 MG in DEXTROSE 5% 50 ML IV SCH ×2 (05:02→13:00)
--- NOTE | 2017-09-03 05:06 | NUR ---
PAIN 6/10, PAIN MEDICATION GIVEN ORDERED, WILL CONTINUE TO MONITOR.
--- NOTE | 2017-09-03 07:15 | NUR ---
RECEIVED PATIENT REPORT. PATIENT AWAKE AND ALERT. NO S/S OF DISTRESS NOTED. NO C/O PAIN AT THIS TIME. BED LOWERED WITH CALL LIGHT WITHIN REACH. WILL CONTINUE TO MONITOR
--- NOTE | 2017-09-03 07:15 | NUR ---
ENDORSED PLAN OF CARE TO DAY SHIFT RN, PATIENT RESTING IN BED, IN STABLE CONDITION.
[2017-09-03 07:45] LABS: BASOPHILS # (AUTO) 0.1 K/uL (0.00-0.22); BASOPHILS % (AUTO) 0.3 % (0.0-2.0); EOSINOPHILS # (AUTO) 0.2 K/uL (0-0.4); EOSINOPHILS % (AUTO) 1.2 % (0.0-4.0); HEMATOCRIT 31.9 % (36-52); HEMOGLOBIN 10.5 g/dL (12.0-18.0); LYMPHOCYTES # (AUTO) 1.7 K/uL (2.0-11.5); LYMPHOCYTES % (AUTO) 9.9 % (20.5-51.1); MEAN CORPUSCULAR HEMOGLOBIN 28 pg (27-31); MEAN CORPUSCULAR HGB CONC 33 g/dL (33-37); MEAN CORPUSCULAR VOLUME 86 fL (80-94); MONOCYTES # (AUTO) 0.8 K/uL (0.8-1.0); MONOCYTES % (AUTO) 4.8 % (1.7-9.3); NEUTROPHILS # (AUTO) 14.1 K/uL (1.8-7.7); NEUTROPHILS % (AUTO) 83.8 % (42.2-75.2); PLATELET COUNT (AUTO) 488 K/uL (140-450); RED BLOOD CELL COUNT(AUTO) 3.72 MIL/uL (4.20-6.10); RED CELL DISTRIBUTION WIDTH 19.4 % (11.6-13.7); WHITE BLOOD COUNT (AUTO) 16.9 K/uL (4.8-10.8)
[2017-09-03 08:00] VITALS: BP 100/71
[2017-09-03 08:19] LABS: CARBON DIOXIDE 26.4 mmol/L (21-32); CREATININE 0.7 mg/dL (0.7-1.3); POTASSIUM 3.4 mmol/L (3.5-5.1)
[2017-09-03] MEDS: LACTOBACILLUS RHAMNOSUS GG 1 EACH CAP PO SCH (08:46)
[2017-09-03] MEDS: LORazepam 1 MG TAB PO SCH ×3 (08:46→17:05)
[2017-09-03] MEDS: CYCLOBENZAPRINE 10 MG TAB PO SCH ×3 (08:47→17:05)
[2017-09-03] MEDS: PANTOPRAZOLE 40 MG TABEC PO SCH (08:47)
[2017-09-03] MEDS: DOCUSATE SODIUM 100 MG GELCAP PO SCH ×2 (08:47→21:00)
[2017-09-03] MEDS: NICOTINE TRANSD SYS 14 MG/24 HR PATCH TD SCH (08:48)
[2017-09-03 08:53] LABS: MAGNESIUM 1.9 mg/dL (1.8-2.4); PHOSPHORUS 3.8 mg/dL (2.5-4.9)
[2017-09-03] MEDS ORDERED: LEVO750T2 PO (09:14)
[2017-09-03] MEDS ORDERED: LACT1.4C PO (09:15)
[2017-09-03] MEDS ORDERED: CLIN300C2 PO (09:15)
[2017-09-03 09:18] LABS: AMYLASE 16 U/L (25-115)
[2017-09-03 09:19] LABS: LIPASE 114 U/L (73-393)
[2017-09-03] MEDS ORDERED: NACL 0.9% 500 ML IV SCH (10:45)
[2017-09-03] MEDS: LEVOFLOXACIN 750 MG/D5W PREMIX 150 ML IV SCH (11:00)
--- NOTE | 2017-09-03 11:00 | NUR ---
DR SHRESTHA INFORMED THE PATIENT THAT HE IS NOT CLEARED FOR DISCHARGE. PATIENT AGREED TO STAY
--- NOTE | 2017-09-03 12:30 | NUR ---
LATE ENTRY FOR 08/30/17 CM NOTE CHART REVIEWED FOR ADMISSION CRITERIA
[2017-09-03] MEDS: HYDROcodone/APAP 10/325 MG 1 TAB TAB PO PRN ×2 (14:34→21:04)
[2017-09-03 14:36] LABS: HEMATOCRIT 28.9 % (36-52); HEMOGLOBIN 9.5 g/dL (12.0-18.0); MEAN CORPUSCULAR HEMOGLOBIN 28 pg (27-31); MEAN CORPUSCULAR HGB CONC 33 g/dL (33-37); MEAN CORPUSCULAR VOLUME 84 fL (80-94); PLATELET COUNT (AUTO) 412 K/uL (140-450); RED BLOOD CELL COUNT(AUTO) 3.42 MIL/uL (4.20-6.10); RED CELL DISTRIBUTION WIDTH 19.9 % (11.6-13.7); WHITE BLOOD COUNT (AUTO) 14.5 K/uL (4.8-10.8)
--- NOTE | 2017-09-03 14:58 | NUR ---
09/03/2017 RD INITIAL ASSESSMENT COMPLETED PLEASE REFER TO NUTRITION ASSESSMENT UNDER CARE ACTIVITY FOR ESTIMATED NUTRITIONAL NEEDS. DIETARY TO ASSIST WITH MENU SELECTIONS AND ENCOURAGE INTAKE RD TO FOLLOW-UP IN 3-5 DAYS PATIENT IS MODERATE RISK. GE[facility]ES [facility]OSKINS, RD
[2017-09-03 15:23] LABS: LYMPHOCYTES % (MANUAL) 9 % (20-46); METAMYELOCYTES % 1 % (0-0)
[2017-09-03 16:00] VITALS: BP 139/87
--- NOTE | 2017-09-03 16:00 | NUR ---
PATIENT IN BED, WATCHING TELEVISION. NO S/S OF DISTRESS NOTED
--- NOTE | 2017-09-03 19:30 | NUR ---
PATIENT REPORT GIVEN AT BEDSIDE. PATIENT ENDORSED IN STABLE CONDITION
[2017-09-03] MEDS: metroNIDAZOLE 500 MG/NS PREMIX 100 ML IV SCH (20:58)
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
[2017-09-04] VITALS: BP 141/84
--- NOTE | 2017-09-04 01:19 | NUR ---
IV ON RT HAND WAS OUT, TIP INTACT, NO ACTIVE BLEEDING AT THE SITE, WILL CONTINUE TO MONITOR.
--- NOTE | 2017-09-04 03:16 | NUR ---
NO CHANGE IN CONDITION, PATIENT IS SLEEPING IN BED, NO S/S OF DISTRESS NOTED, RESPIRATION EVEN AND UNLABORED, CALL LIGHT WITHIN REACH, SAFETY MEASURE ENSURED, WILL CONTINUE TO MONITOR.
[2017-09-04] MEDS: metroNIDAZOLE 500 MG/NS PREMIX 100 ML IV SCH (04:39)
[2017-09-04] MEDS: NACL 0.9% 1,000 ML IV SCH (04:39)
[2017-09-04] MEDS: HYDROcodone/APAP 10/325 MG 1 TAB TAB PO PRN (04:39)
--- NOTE | 2017-09-04 04:50 | NUR ---
PAIN 6/10, NORCO GIVEN ORDERED, NO S/S OF DISTRESS NOTED, WILL CONTINUE TO MONITOR.
[2017-09-04 06:27] LABS: BASOPHILS % (AUTO) 0.4 % (0.0-2.0); EOSINOPHILS # (AUTO) 0.2 K/uL (0-0.4); EOSINOPHILS % (AUTO) 1.9 % (0.0-4.0); HEMATOCRIT 29.5 % (36-52); HEMOGLOBIN 9.5 g/dL (12.0-18.0); LYMPHOCYTES # (AUTO) 1.1 K/uL (2.0-11.5); LYMPHOCYTES % (AUTO) 8.6 % (20.5-51.1); MEAN CORPUSCULAR HEMOGLOBIN 28 pg (27-31); MEAN CORPUSCULAR HGB CONC 32 g/dL (33-37); MEAN CORPUSCULAR VOLUME 85 fL (80-94); MONOCYTES # (AUTO) 0.7 K/uL (0.8-1.0); MONOCYTES % (AUTO) 5.4 % (1.7-9.3); NEUTROPHILS # (AUTO) 10.4 K/uL (1.8-7.7); NEUTROPHILS % (AUTO) 83.7 % (42.2-75.2); PLATELET COUNT (AUTO) 465 K/uL (140-450); RED BLOOD CELL COUNT(AUTO) 3.45 MIL/uL (4.20-6.10); RED CELL DISTRIBUTION WIDTH 19.9 % (11.6-13.7); WHITE BLOOD COUNT (AUTO) 12.4 K/uL (4.8-10.8)
[2017-09-04 07:04] LABS: ANION GAP 13.5 (8-16); CARBON DIOXIDE 24.9 mmol/L (21-32); CREATININE 0.6 mg/dL (0.7-1.3); POTASSIUM 3.4 mmol/L (3.5-5.1)
[2017-09-04 07:09] LABS: MAGNESIUM 1.8 mg/dL (1.8-2.4); PHOSPHORUS 4.4 mg/dL (2.5-4.9)
[2017-09-04] MEDS ORDERED: LEVO750T2 PO (07:14)
[2017-09-04] MEDS ORDERED: CLIN300C2 PO (07:14)
[2017-09-04] MEDS ORDERED: LACT1.4C PO (07:14)
--- NOTE | 2017-09-04 07:14 | NUR ---
ENDORSED PLAN OF CARE TO DAY SHIFT RN, PATIENT RESTING IN BED, IN STABLE CONDITION.
--- NOTE | 2017-09-04 07:15 | NUR ---
RECEIVED REPORT AT BEDSIDE FOR CONTINUITY OF CARE FROM CIGARETTE FILTER INSPECTOR NURSE. PATIENT ALERT AND EASILY WOKEN. NO ACUTE DISTRESS NOTED. PT WITH PATENT IV TO RIGHT WRIST 24G WITH NS 90ML/HR. CALL LIGHT WITHIN REACH. BED IN LOW POSITION. WILL CONT TO MONITOR PT.
[2017-09-04 07:29] VITALS: BP 136/90
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
== END 2017-09-04 08:30 | disposition home or self-care (01) | DRG 282 ==
LOC: MED 22:11 → MTU 08-30 05:07
PROVIDERS: ADMIT Family Medicine; ATTEND Family Medicine
DX: K85.20 Alcohol induced acute pancreatitis without necrosis or infection (principal); N17.0 Acute kidney failure with tubular necrosis; J69.0 Pneumonitis due to inhalation of food and vomit; D64.9 Anemia, unspecified; E87.1 Hypo-osmolality and hyponatremia; K76.0 Fatty (change of) liver, not elsewhere classified; E11.9 Type 2 diabetes mellitus without complications; E87.6 Hypokalemia; F17.200 Nicotine dependence, unspecified, uncomplicated; E66.9 Obesity, unspecified; J45.909 Unspecified asthma, uncomplicated; F10.10 Alcohol abuse, uncomplicated; F12.10 Cannabis abuse, uncomplicated; H81.09 Meniere's disease, unspecified ear; R19.7 Diarrhea, unspecified; K86.0 Alcohol-induced chronic pancreatitis; Z68.34 Body mass index [BMI] 34.0-34.9, adult; Z87.11 Personal history of peptic ulcer disease; Z98.84 Bariatric surgery status; Z88.8 Allergy status to other drugs, medicaments and biological substances; Z87.442 Personal history of urinary calculi
CPT/HCPCS: 36415; 71045; 71260; 80048; 80053; 80305; 81003; 82150; 83036; 83690; 83735; 83880; 84100; 84439; 84443; 84484; 85025; 85610; 85730; 87040; 87081; 87205; 96361; 96374; 96375; 99285; G0482; J1956; J2001; J2270; J2405; J3480; J3490; J7030; J7060; Q0092; Q9967